=== PATIENT | male | born 1960 | race Caucasian/White ===

== ENCOUNTER 2019-11-18 15:19 | Emergency (ER) | payer MEDICAID ==
[~2019-11-18] VITALS: Ht 180.3 cm; Wt 109.8 kg
[2019-11-18 15:29] VITALS: BP 174/94; Ht 180.3 cm; Wt 109.8 kg
== END 2019-11-18 16:09 | disposition home or self-care (01) ==
LOC: ED 15:19
DX: S61.412A Laceration without foreign body of left hand, initial encounter (principal); W22.8XXA Striking against or struck by other objects, initial encounter; Y93.89 Activity, other specified; Y92.89 Other specified places as the place of occurrence of the external cause; Y99.8 Other external cause status
CPT/HCPCS: 90715; J2001

== ENCOUNTER 2020-02-06 13:48 | Emergency (ER) | payer MEDICAID ==
[~2020-02-06] VITALS: Ht 177.8 cm; Wt 102.1 kg
[~2020-02-06 13:48] MED LIST: AUGMENTIN 875-1 EACH PO; CIPRO250 MG PO; CIPRO500 MG PO; LANTI SQ; ZESTRIL20 MG PO
[2020-02-06 13:59] VITALS: BP 157/77; Ht 177.8 cm; Wt 102.1 kg
== END 2020-02-06 15:22 | disposition home or self-care (01) ==
LOC: ED 13:48
DX: Z48.01 Encounter for change or removal of surgical wound dressing (principal); I10 Essential (primary) hypertension; E11.9 Type 2 diabetes mellitus without complications